=== PATIENT | male | born 1970 | race Caucasian/White ===

== ENCOUNTER 2021-11-03 11:07 | Emergency (ER) | payer OTHER ==
[~2021-11-03] VITALS: Ht 172.7 cm; Wt 99.8 kg
[2021-11-03] MEDS ORDERED: PREDNISONE10 MG PO (11:43)
== END 2021-11-03 11:38 | disposition home or self-care (01) ==
LOC: ED 11:07
DX: S29.011A Strain of muscle and tendon of front wall of thorax, initial encounter (principal); X50.1XXA Overexertion from prolonged static or awkward postures, initial encounter; Y93.89 Activity, other specified; Y92.89 Other specified places as the place of occurrence of the external cause; Y99.8 Other external cause status